=== PATIENT | female | born 1985 | race Caucasian/White ===

== ENCOUNTER 2021-12-12 17:46 | Emergency (ER) | payer OTHER, SELFPAY ==
--- NOTE | ~2021-12-12 | XR_ITS ---
EXAMINATION: XR ribs LT 2V Exam Date/Time: 12/12/2021 18:15 CDT HISTORY: NKI,ANT PAIN Comparison: None available. RESULT: Lines, tubes, and devices: None. Lungs and pleura: Visualized portions are clear. Cardiomediastinal silhouette: Unremarkable. Other: No acute osseous or upper abdominal finding. IMPRESSION: No acute osseous finding in the left ribs. Reviewed, dictated and finalized at location K.
--- NOTE | 2021-12-12 17:48 | ED.ABDPAIN ---
HPI - Abdominal Pain General Chief Complaint: Unspecified Stated Complaint: left side pain Time Seen by Provider: 12/12/21 17:49 Source: patient and RN notes reviewed History of Present Illness HPI narrative: Patient is a 36-year-old female who presents the urgent care with complaints of left side pain. Patient states it started yesterday and does improve with Aleve. Patient states pain exacerbates with movement. Patient reports the pain being directly under the left breast. Denies any nausea, vomiting or radiation of the pain through to the back. Patient has never had abdominal surgery. No other acute complaints. Denies any blunt force trauma to the chest. 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 Patient aware of the plan of care. Some parts of this dictation were generated by voice recognition software and may contain typographical and/or grammatical inaccuracies. Related Data Home Medications Medication Instructions Recorded Confirmed medroxyprogesterone 150 mg/mL mg IM 12/12/21 12/12/21 intramuscular suspension Review of Systems Review of Systems: CONSTITUTIONAL: Denies fever, chills, or sweats. EYES: Denies visual changes, redness, or discharge. ENT: Denies rhinorrhea, congestion, sore throat, or otalgia. CARDIOVASCULAR: Denies chest pain, palpitations, or edema. RESPIRATORY: Denies cough or dyspnea. GASTROINTESTINAL: Denies abdominal pain, nausea, vomiting, or diarrhea. GENITOURINARY: Denies dysuria or hematuria. SKIN: Denies rash or itching. MUSCULOSKELETAL: Reports of left side pain. NEUROLOGIC: Denies headache, numbness, or weakness. All other systems reviewed are negative, except as documented in HPI. PMFSH Comments At the time of my signature, I reviewed and agree with the nursing past medical, surgical, social, and family history. There is no relevant family history pertinent to the patient complaint. Exam Narrative: GENERAL: This is a well-nourished, well-developed patient, in no apparent distress. HEAD: normocephalic, atraumatic. EYES: PERRL. Sclera clear/white. Vision is grossly intact. EARS: External ears normal NOSE: External nose normal with no obvious nasal discharge, nares without redness, no rhinorrhea. THROAT: Mucous membranes moist NECK: Neck supple CARDIOVASCULAR: Regular rate and rhythm without murmurs, gallops, or rubs. RESPIRATORY: Clear to auscultation. Breath sounds equal bilaterally. No wheezes, rales, or rhonchi. No reproducible pain over the anterior left ribs. GASTROINTESTINAL: Abdomen soft, non-tender, nondistended. Bowel sounds are active. SKIN: warm, intact with no suspicious lesions or rash, good texture and turgor. NEURO: awake, alert, and oriented to person, place and time. There were no obvious focal neurologic abnormalities. EXTREMITIES: No clubbing, cyanosis, or edema. BACK: Negative bilateral CVA tenderness Course Course Level of Care: Express Care Visit Vital Signs Vital signs: Vital Signs Temperature 98.2 F 12/12/21 17:51 Pulse Rate 92 12/12/21 17:51 Respiratory Rate 18 12/12/21 17:51 Blood Pressure 117/68 12/12/21 17:51 Pulse Oximetry 100 12/12/21 17:51 Oxygen Delivery Room Air 12/12/21 17:51 Temperature 98.2 F 12/12/21 17:51 Pulse Rate 92 12/12/21 17:51 Respiratory Rate 18 12/12/21 17:51 Blood Pressure 117/68 12/12/21 17:51 Pulse Oximetry 100 12/12/21 17:51 Oxygen Delivery Room Air 12/12/21 17:51 Reviewed MDM - Abdominal Pain MDM Narrative Medical decision making narrative: Reviewed x-ray results with the patient. She is aware that x-ray shows no abnormality. Patient is aware that our facility cannot rule out blood clot which is currently of no concern. Symptoms are likely due to a pulled muscle however if you develop any increase in pain associated with fevers, nausea, vomiting, shortness of breath or chest pain?go to the emergency room. Continu
[2021-12-12 17:51] VITALS: BP 117/68; PULSE 92; RESP 18; TEMP 36.8; O2SAT 100
== END 2021-12-12 19:25 | disposition home or self-care (01) ==
PROVIDERS: Emergency Provider Nurse Practitioner Family
DX: S39.011A Strain of muscle, fascia and tendon of abdomen, initial encounter (principal); X58.XXXA Exposure to other specified factors, initial encounter
CPT/HCPCS: 71100; 99203; G0463

== ENCOUNTER 2023-09-20 08:53 | Emergency (ER) | payer OTHER, SELFPAY ==
[2023-09-20 08:57] VITALS: BP 113/81; PULSE 84; RESP 16; TEMP 36.3; O2SAT 98
--- NOTE | 2023-09-20 09:31 | ED.FEMALEGU ---
HPI - Female Genitourinary General Chief complaint: Urogenital-Female Stated complaint: pain left side abdomen Time Seen by Provider: 09/20/23 09:12 Source: patient, RN notes reviewed and old records reviewed Mode of arrival: ambulatory Limitations: no limitations History of Present Illness HPI Narrative: 37 year old female presents to express care presents to express care with complaints of having left flank pain radiating into back since Monday with increased pain since Monday. Patient reports that she has had some frequency and urgency with urination for past 2 days, denies any burning or pain with urination, Patient reports that on Monday she had diarrhea X2 with none since.Patient reports no fevers no nausea or vomiting. Patient reports no history of kidney stones. MD elicited complaint: UTI and other (left flank pain) Onset (ago): day(s) (3-4 days) Location of symptoms: flank (left) Severity scale (1-10): 4 Quality of pain: aching Vaginal discharge: none Vaginal bleeding: none Related Data Home Medications Medication Instructions Recorded Confirmed medroxyprogesterone 150 mg/mL See Rx Instructions .Route .COMPLEX 12/12/21 09/20/23 intramuscular suspension Allergies Allergy/AdvReac Type Severity Reaction Status Date / Time No Known Allergies Allergy Verified 09/20/23 09:19 Review of Systems Review of Systems: CONSTITUTIONAL: Denies fever, chills, or sweats. CARDIOVASCULAR: Denies chest pain, palpitations, or edema. RESPIRATORY: Denies cough or dyspnea. GASTROINTESTINAL: Denies abdominal pain, nausea, vomiting, 1 day of diarrhea on Monday X2 GENITOURINARY: Reports frequency, urgency, reports no burning. Reports left flank pain radiates to her back no visible hematuria. SKIN: Denies rash or itching. MUSCULOSKELETAL: Denies acute lower back pain or myalgia. Reports left flank pain radiating to back. NEUROLOGIC: Denies headache All systems reviewed & are unremarkable except as noted in HPI and below PMFSH Surgical History Surgical History Previous section x2 Social History Social History (Updated 09/21/23 @ 08:04 by Bushra Roth NP) Smoking status: Current every day smoker Tobacco type: e-cigarettes/vaping Additional smoking assessment comments: smoked cigarettes fo 10 years prior to vaping Alcohol intake: current Alcohol use details: social Substance use type: does not use Living arrangements: with family Gender identity (if verbalized by the patient): Female Comments At time of signature, agree with nursing past medical, surgical, social and family history. There is no relevant family history pertinent to the presenting complaint Exam Narrative: GENERAL: Well-appearing, well-nourished, and in no acute distress. HEAD: Normocephalic, atraumatic. NECK: Supple.no lymphadenopathy CHEST: Clear to auscultation. No respiratory distress.SAO2 98% on room air HEART: Regular rate and rhythm. No murmur heard. Normal peripheral pulses. ABDOMEN: Soft, nontender, nondistended, normal active bowel sounds. Left flank pain with radiation to her back some urgency and frequency of urination, no burning or pain with urination EXTREMITIES: Normal range of motion. No edema. SKIN: Warm, dry, no rash. NEURO: No focal deficits. Alert and oriented x3. Course Course Emergency Course: Patient is aware of diagnosis, understands and agrees to treatment plan.? Anticipatory guidance given.? Patient agrees to follow-up as directed and is aware of reasons to seek care at the emergency department. Portions of this record may have been created with voice recognition software Level of Care: Express Care Visit Vital Signs Vital signs: Vital Signs Temperature 36.3 C L 09/20/23 08:57 Pulse Rate 84 09/20/23 08:57 Respiratory Rate 16 09/20/23 08:57 Blood Pressure 113/81 09/20/23 08:57 Pulse Oximetry 98 09/20/23 08:57 Oxygen
[2023-09-20 09:44] LABS: EDUAAPPEAR Cloudy; EDUABILI Negative; EDUABLOOD 1+; EDUACOLOR1 Yellow; EDUAGLUCOSE Negative; EDUAKETONE Negative; EDUALEUKO 2+; EDUANITRATE Negative; EDUAPH 6.5; EDUAPROTEIN Negative; EDUASPGRAVITY 1.025
== END 2023-09-20 09:40 | disposition home or self-care (01) ==
PROVIDERS: Emergency Provider Registered Nurse
DX: N39.0 Urinary tract infection, site not specified (principal); B95.7 Other staphylococcus as the cause of diseases classified elsewhere; F17.290 Nicotine dependence, other tobacco product, uncomplicated
CPT/HCPCS: 81003; 87077; 87086; 87088; 99213; G0463